=== PATIENT | male | born 1960 | race Caucasian/White ===

== ENCOUNTER 2019-09-05 12:04 | Emergency (ER) | payer BC ==
--- NOTE | 2019-09-05 14:34 | ED ---
Abdominal Pain HPI - General Chief Complaint: Abdominal Pain Stated Complaint: groin pain Time Seen by Provider: 09/05/19 14:17 Source: patient Mode of arrival: ambulatory Limitations: no limitations - History of Present Illness Initial Comments: Patient is 59-year-old male presenting to emergency Department with chief complaint of abdominal pain. Patient reports his abdominal muscles in the suprapubic region multiple times before. However, he states the most recent episode was yesterday he said having continuous pain in the region. Patient reports the pain feels like pulling of the muscles. Patient denies any increased urgency or frequency or dysuria. Patient denies any trauma to the region. Patient denies radiation of the pain, and he has other abdominal pain, back pain, chest pain or shortness of breath. Patient denies any night sweats or chills. Patient denies any nausea vomiting or diarrhea. Patient denies taking any medication to alleviate the symptoms. Patient denies a history of hernias. - Related Data Allergies Allergy/AdvReac Type Severity Reaction Status Date / Time No Known Allergies Allergy Verified 09/05/19 12:32 Review of Systems ROS Statement: Those systems with pertinent positive or pertinent negative responses have been documented in the HPI. ROS Other: All systems not noted in ROS Statement are negative. Past Medical History Past Medical History: No Reported History History of Any Multi-Drug Resistant Organisms: None Reported Past Surgical History: No Surgical Hx Reported Past Psychological History: No Psychological Hx Reported Smoking Status: Current every day smoker Past Alcohol Use History: Occasional Past Drug Use History: None Reported General Exam Limitations: no limitations General appearance: alert, in no apparent distress Head exam: Present: atraumatic, normocephalic, normal inspection Eye exam: Present: normal appearance ENT exam: Present: normal exam, mucous membranes moist Neck exam: Present: normal inspection, full ROM Respiratory exam: Present: normal lung sounds bilaterally Cardiovascular Exam: Present: regular rate, normal rhythm, normal heart sounds GI/Abdominal exam: Present: soft, tenderness (Very mild tenderness in the suprapubic region.), normal bowel sounds. Absent: distended, guarding, rebound, rigid, mass (No abdominal masses appreciated on abdominal exam) Extremities exam: Present: normal inspection, full ROM Back exam: Present: normal inspection, full ROM Neurological exam: Present: alert, oriented X3 Psychiatric exam: Present: normal affect, normal mood Skin exam: Present: warm, intact, normal color Course Vital Signs 09/05/19 09/05/19 12:31 15:22 Temperature 98.2 F 98.0 F Pulse Rate 78 70 Respiratory 18 17 Rate Blood Pressure 149/87 137/74 O2 Sat by Pulse 98 98 Oximetry Medical Decision Making - Medical Decision Making Patient is a 59-year-old female presenting to emergency Department with a chief complaint of abdominal pain. Based on the patient's description this appears to be muscle strain of the abdominal wall. Patient does have a pulling, tightening sensation of the suprapubic abdominal wall muscles. Physical examination the abdomen is negative for any masses, hernia or tenderness. Patient has no nausea vomiting or diarrhea. Patient denies urinary symptoms. UA is clean. I showed the patient several exercises to help stretch abdominal muscles. Patient advised to follow with primary care for further management. Strict return parameters were thoroughly discussed with patient was understanding and agreeab le. Case discussed physician. - Lab Data Lab Results 09/05/19 Range/Units 14:42 Urine Color Yellow Urine Appearance Clear (Clear) Urine pH 5.0 (5.0-8.0) Ur Specific Nikolai 1.010 (1.001-1.035) Urine Protein Negative (Negative) Urine Glucose (UA) Negative (Negative) Urine Ketones Trace H (Negative) Urine Blood Negative (Negative) Urine Nitrite Negative (Negative) Urine Bilirubin Negative (Negative) Urine Urobilinogen <2.0 (<2.0) mg/dL Ur Leukocyte Esterase Negative (Negative) Disposition Clinical Impression: Strain of abdominal muscle Disposition: HOME SELF-CARE Condition: Stable Instructions (If sedation given, give patient instructions): Muscle Strain (ED) Additional Instructions: Please follow with primary care. Please return to emergency department if symptoms worsen. Is patient prescribed a controlled substance at d/c from ED?: No Referrals: None,Stated [Primary Care Provider] - 1-2 days Time of Disposition: 15:10
[2019-09-05 14:57] LABS: Appearance,Urine Clear (Clear); Bilirubin,Urine Negative (Negative); Blood,Urine Negative (Negative); Color,Urine Yellow; Glucose,Urine (UA) Negative (Negative); Ketones,Urine Trace (Negative); Leukocyte Esterase,Urine Negative (Negative); Nitrite,Urine Negative (Negative); Protein,Urine Negative (Negative); Urobilinogen,Urine <2.0 mg/dL (<2.0)
[2019-09-05 15:24] VITALS: BP 137/74; PULSE 70; RESP 17; TEMP 98
== END 2019-09-05 15:24 | disposition home or self-care (01) ==
LOC: EC 12:04
DX: S39.011A Strain of muscle, fascia and tendon of abdomen, initial encounter (principal); F17.200 Nicotine dependence, unspecified, uncomplicated; X58.XXXA Exposure to other specified factors, initial encounter
CPT/HCPCS: 81003; 99284

== ENCOUNTER 2020-08-12 13:34 | Emergency (ER) | payer BC ==
[2020-08-12 13:39] VITALS: BP 172/84; PULSE 79; RESP 18; TEMP 97.3
--- NOTE | 2020-08-12 14:05 | ED ---
Lower Extremity Injury HPI - General Source: patient Mode of arrival: ambulatory Limitations: no limitations <Gita Long - Last Filed: 08/12/20 14:08> <Roque Whitt - Last Filed: 08/12/20 15:03> - General Chief Complaint: Extremity Injury, Lower Stated Complaint: L Knee Pain Time Seen by Provider: 08/12/20 13:52 - History of Present Illness Initial Comments: 60-year-old male presented for chief complaint of left posterior knee pain he states he has had left lateral left posterior knee pain on and off for 2 weeks he states as a aching pain feels deep. He states he has not noticed any calf swelling or pain he denies any leg swelling. Does interact injury trauma he denies any redness swelling of the knee joint fever chills general malaise or additional complaints. Patient states he still to range with some tenderness and weight-bear and ambulate. Patient has no additional complaints upon arrival he appears well nontoxic distress denies any history of DVT pulmonary and wasn't history of cancer recent surgeries travel injuries. (Gita Long) - Related Data Allergies Allergy/AdvReac Type Severity Reaction Status Date / Time No Known Allergies Allergy Verified 08/12/20 13:39 Review of Systems ROS Other: All systems not noted in ROS Statement are negative. <Gita Long - Last Filed: 08/12/20 14:08> ROS Other: All systems not noted in ROS Statement are negative. <Roque Whitt - Last Filed: 08/12/20 15:03> ROS Statement: Those systems with pertinent positive or pertinent negative responses have been documented in the HPI. Past Medical History Past Medical History: No Reported History History of Any Multi-Drug Resistant Organisms: None Reported Past Surgical History: No Surgical Hx Reported Past Psychological History: No Psychological Hx Reported Smoking Status: Current every day smoker Past Alcohol Use History: Occasional Past Drug Use History: None Reported <Gita Long - Last Filed: 08/12/20 14:08> General Exam Limitations: no limitations <Gita Long - Last Filed: 08/12/20 14:08> - General Exam Comments Initial Comments: General: The patient is awake and alert, in no distress Eye: Pupils are equal, round and reactive to light, extra-ocular movements are intact. No nystagmus. There is normal conjunctiva bilaterally. No signs of icterus. Cardiovascular: There is a regular rate and rhythm. No murmur, rub or gallop is appreciated. Respiratory: Lungs are clear to auscultation, respirations are non-labored, breath sounds are equal. No wheezes, stridor, rales, or rhonchi. Musculoskeletal: No swelling nor redness noted of the knees when compared bilaterally. Patient has no anterior tenderness to palpation however he does have some lateral and posterior tenderness appreciated no noted swelling. There is no tenderness or swelling noted at the calf bilaterally. They appear equal in comparison. Patient is full strength and range of motion of the knees bilaterally including the affected left knee. Sensation intact proximal distal to area of complaint +2 dorsalis pedis pulses bilaterally Neurological: A&O x 3. CN II-XII intact grossly, There are no obvious motor or sensory deficits. Coordination appears grossly intact. Speech is normal. Skin: Skin is warm and dry and no rashes or lesions are noted. Psychiatric: Cooperative, appropriate mood & affect, normal judgment. (Gita Long) Course Vital Signs 08/12/20 13:37 Temperature 97.3 F L Pulse Rate 79 Respiratory 18 Rate Blood Pressure 172/84 O2 Sat by Pulse 98 Oximetry Medical Decision Making <Gita Long - Last Filed: 08/12/20 14:08> <Roque Whitt - Last Filed: 08/12/20 15:03> - Medical Decision Making XR , US pending at time of sign out. Patient case discussed with Dr. Barkley attending--if US, XR are (-) patient I feel is stable for discharge as there is no signs of infectious cause. Patient is neurovascularly intact and ambulatory. 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 ZEESHAN Whitt is watching for peding imaging studies. (Gita Long) Patient care was signed off to me by ZEESHAN Pelayo. Ultrasound is negative for DVT. X-rays negative for any acute processes. Information was conveyed to the patient. He was advised to follow-up with multi media specialist. Strict return parameters were thoroughly discussed with patient is understanding and agreeable. Case discussed with physician. (Roque Whitt) Disposition <Gita Long Hector - Last Filed: 08/12/20 14:08> Is patient prescribed a controlled substance at d/c from ED?: No Time of Disposition: 15:03 <Roque Whitt - Last Filed: 08/12/20 15:03> Clinical Impression: Left knee pain Disposition: HOME SELF-CARE Condition: Stable Instructions (If sedation given, give patient instructions): Knee Sprain (ED) Additional Instructions: Follow with multi media specialist. Alternate between Tylenol Motrin for pain co ntrol. Apply as compress. Keep the leg elevated. Return to emergency department if symptoms worsen. Referrals: None,Stated [Primary Care Provider] - 1-2 days Ventura Mckee DO [Medical Doctor] - 1-2 days
--- NOTE | 2020-08-12 14:08 | XR ---
EXAMINATION TYPE: XR knee complete LT DATE OF EXAM: 08/12/2020 COMPARISON: NONE HISTORY: Pain TECHNIQUE: Three views are submitted. FINDINGS: Mild narrowing of the medial compartment of the knee joint. No erosive changes. Osseous structures a re intact. No acute fracture seen. IMPRESSION: 1. No acute fracture or dislocation.
--- NOTE | 2020-08-12 14:47 | US ---
EXAMINATION TYPE: US venous doppler duplex LE LT DATE OF EXAM: 08/12/2020 1:53 PM COMPARISON: NONE CLINICAL HISTORY: posterior knee pain. SIDE PERFORMED: left TECHNIQUE: The lower extremity deep venous system is examined utilizing real time linear array sonog sam with graded compression, doppler sonography and color-flow sonography. VESSELS IMAGED: External Iliac Vein (EIV) Common Femoral Vein Deep Femoral Vein Greater Saphenous Vein * Femoral Vein Popliteal Vein Small Saphenous Vein * Proximal Calf Veins (* superficial vessels) Left Leg: Negative for DVT IMPRESSION: No evidence of DVT at this time.
== END 2020-08-12 15:32 | disposition home or self-care (01) ==
LOC: EC 13:34
DX: M25.562 Pain in left knee (principal); F17.200 Nicotine dependence, unspecified, uncomplicated
CPT/HCPCS: 99284

== ENCOUNTER 2024-04-30 11:43 | Emergency (ER) | payer BC, OTHER ==
[2024-04-30 11:55] VITALS: RESP 18
[2024-04-30] MEDS: DIPH,PERTUS(ACELL)TETVAC-LF 0.5 ML VIAL IM ONE (12:57)
--- NOTE | 2024-04-30 13:34 | ED ---
Upper Extremity HPI - General Chief Complaint: Extremity Injury, Upper Stated Complaint: L Hand Injury Time Seen by Provider: 04/30/24 12:00 Source: patient, RN notes reviewed Mode of arrival: ambulatory Limitations: no limitations - History of Present Illness Initial Comments: 63-year-old male presenting with laceration on left hand 1 hour prior to arr ival. States he was attempting to cut a zip tie with a utility knife when the knife slipped and sliced his left index finger. Denies blood thinners. He is right-hand dominant. Last tetanus unknown. Denies numbness or tingling. - Related Data Previous Rx's Medication Instructions Recorded Cephalexin [Keflex] 500 mg PO Q12HR 5 Days #10 cap 04/30/24 Allergies Allergy/AdvReac Type Severity Reaction Status Date / Time No Known Allergies Allergy Verified 04/30/24 11:55 Review of Systems ROS Statement: Those systems with pertinent positive or pertinent negative responses have been documented in the HPI. ROS Other: All systems not noted in ROS Statement are negative. Past Medical History Past Medical History: No Reported History History of Any Multi-Drug Resistant Organisms: None Reported Past Surgical History: No Surgical Hx Reported Past Psychological History: No Psychological Hx Reported Smoking Status: Current every day smoker Past Alcohol Use History: Occasional Past Drug Use History: None Reported General Exam Limitations: no limitations General appearance: alert, in no apparent distress Head exam: Present: atraumatic, normocephalic, normal inspection Left Forearm Wrist exam: Present: normal inspection, full ROM. Absent: tenderness, swelling Hand Wrist exam: Present: full ROM, laceration (3 cm superficial laceration present on dorsal aspect of proximal second digit of left hand. No active bleeding. No tenderness to palpation. Full range of motion of metacarpal phalangeal joint, DIP and PIP joints). Absent: tenderness, swelling Vascular: Absent: vascular compromise (Cap refill less than 2 seconds. Sensation and radial pulses intact) Course Vital Signs 04/30/24 04/30/24 11:53 13:38 Temperature 98 F 98.1 F Pulse Rate 114 H 80 Respiratory 18 18 Rate Blood Pressure 162/89 137/87 O2 Sat by Pulse 98 100 Oximetry Procedures - Laceration Laceration #1 Consent Obtained: verbal consent Indication: laceration Site: upper extremity Size (cm): 3 Description: linear Depth: simple, single layer Pre-repair: wound explored, irrigated extensively, deep structures intact Patient Tolerated Procedure: well, no complications Additional Comments: Wound irrigated, skin adhesive and Steri-Strips applied. Full range of motion and neurovascularly intact status post procedure Medical Decision Making - Medical Decision Making Was pt. sent in by a medical professional or institution (, [facility], [facility], urgent care, hospital, or senior care...) When possible be specific @ -No Did you speak to anyone other than the patient for history (EMS, parent, family, police, friend...)? What history was obtained from this source @ -No Did you review nursing and triage notes (agree or disagree)? Why? @ -I reviewed and agree with nursing and triage notes Were old charts reviewed (outside hosp., previous admission, EMS record, old EKG, old radiological studies, urgent care reports/EKG's, senior care records)? Report findings @ -No old charts were reviewed Differential Diagnosis (chest pain, altered mental status, abdominal pain women, abdominal pain men, vaginal bleeding, weakness, fever, dyspnea, syncope, headache, dizziness, GI bleed, back pain, seizure, CVA, palpatations, mental health, musculoskeletal)? @ -Differential Musculoskeletal Laceration, avulsion, muscular strain, contusion, ligament sprain, fracture, arthritis, septic arthritis, bursitis, cellulitis, muscle spasm, nerve compression, DVT, arterial occlusion, herpes zoster, electrolyte abnormality, tumor.... This is not meant to be in all inclusive list EKG interpreted by me (3pts min.). @ -None X-rays interpreted by me (1pt min.). @ -None done CT interpreted by me (1pt min.). @ -None done U/S interpreted by me (1pt. min.). @ -None done What testing was considered but not performed or refused? (CT, X-rays, U/S, labs)? Why? @ -X-ray not performed due to no blunt trauma and no tenderness What meds were considered but not given or refused? Why? @ -None Did you discuss the management of the patient with other professionals (professionals i.e. [facility] Watters, [facility], lab, RT, psych nurse, social services designee, sign builder, teacher, training and development officer, case briefer)? Give summary @ -No Was smoking cessation discussed for >3mins.? @ -No Was critical care preformed (if so, how long)? @ -No Were there social determinants of health that impacted care today? How? (Homelessness, low income, unemployed, alcoholism, drug addiction, transportation, low edu. Level, literacy, decrease access to med. care, [facility], re hab)? @ -No Was there de-escalation of care discussed even if they declined (Discuss DNR or withdrawal of care, Hospice)? DNR status @ -No What co-morbidities impacted this encounter? (DM, HTN, Smoking, COPD, CAD, Cancer, CVA, ARF, Chemo, Hep., AIDS, mental health diagnosis, sleep apnea, morbid obesity)? @ -None Was patient admitted / discharged? Hospital course, mention meds given and route, prescriptions, significant lab abnormalities, going to OR and other pertinent info. @ -Patient was discharged. Patient was seen and evaluated for laceration of second digit of left hand. Patient is neurovascularly intact. Physical examination reveals 3 cm superficial, nonbleeding laceration on dorsal aspect of proximal second digit. Wound irrigated thoroughly, skin adhesive and Steri- Strips applied. Patient tolerated procedure well and is neurovascularly intact status post procedure. Tetanus updated. Wound care discussed. Prescribed Keflex for antibacterial prophylaxis. Strict return/alarm symptoms discussed with patient and he shows understanding and agrees with plan. Case discussed with my attending Dr. Church. Patient discharged in stable condition Undiagnosed new problem with uncertain prognosis? @ -No Drug Therapy requiring intensive monitoring for toxicity (Heparin, Nitro, Insulin, Cardizem)? @ -No Were any procedures done? @ -No Diagnosis/symptom? @ -Laceration of left second digit Acute, or Chronic, or Acute on Chronic? @ -Acute Uncomplicated (without systemic symptoms) or Complicated (systemic symptoms)? @ -Uncomplicated Side effects of treatment? @ -No Exacerbation, Progression, or Severe Exacerbation? @ -No Poses a threat to life or bodily function? How? (Chest pain, USA, AR, pneumonia, PE, COPD, DKA, ARF, appy, cholecystitis, CVA, Diverticulitis, Homicidal, Suicidal, threat to staff... and all critical care pts) @ -No Disposition Clinical Impression: Laceration of left hand Disposition: HOME SELF-CARE Condition: Stable Instructions (If sedation given, give patient instructions): Laceration (ED) Additional Instructions: Please return to the Emergency Department if symptoms worsen or any other concerns. Prescriptions: Cephalexin [Keflex] 500 mg PO Q12HR 5 Days #10 cap Is patient prescribed a controlled substance at d/c from ED?: No Referrals: None,Stated [Primary Care Provider] - 1-2 days Time of Disposition: 13:33
[2024-04-30 13:40] VITALS: BP 137/87; PULSE 80; TEMP 98.1
== END 2024-04-30 13:38 | disposition home or self-care (01) ==
LOC: EC 11:43
DX: S61.211A Laceration without foreign body of left index finger without damage to nail, initial encounter (principal); F17.200 Nicotine dependence, unspecified, uncomplicated; W26.0XXA Contact with knife, initial encounter; Z23 Encounter for immunization
CPT/HCPCS: 12013; 90471; 90715; 99283

== ENCOUNTER → 2024-10-10 | Outpatient (CLI) | payer MEDICARE ==
--- NOTE | 2024-10-10 17:00 | CTL ---
EXAMINATION TYPE: CT Low Dose Lung DATE OF EXAM: 10/10/2024 4:31 PM COMPARISON: None. CLINICAL INDICATION: Male, 64 years old with history of Z12.2 ENCNTR SCREEN FO F17.210 NICOTINE DEPEN DENCE; Lung screening for nicotine dependence of 1.25ppd x58 years. Current smoker., history of tobac co use. TECHNIQUE: Multiple axial non-contrast scans were obtained from approximately the lung apices through the upper abdomen. Coronal and sagittal reformatted images were obtained. Low dose technique was uti lized. MIP were created on a separate workstation and submitted for review. CT DLP: 76.4 mGycm, Automated exposure control for dose reduction was used. CT Contrast: Contrast used: None Oral contrast used: None FINDINGS: Lack of intravenous contrast and low dose technique limits the evaluation of the vascular and soft ti ssue structures. LUNGS: No evidence of pulmonary fibrosis. No evidence of focal consolidation, pneumothorax or pleural effusion. Centrilobular emphysema changes. Nodules: RUL: None. RML: None. RLL: Intrafissural lymph node series 7 image 39 CIERA: None. LLL: r 7 x 5 mm pulmonary nodule near the diaphragm, intrafissural lymph node series 7 image 34e AIRWAY: Patent and unremarkable. HEART: Size within normal limits.Atherosclerosis of the arterial vasculature. MEDIASTINUM: No gross evidence of adenopathy. VASCULATURE: No aortic aneurysm. MUSCULOSKELETAL: No acute osseous abnormalities SOFT TISSUES/LYMPH NODES: Unremarkable. LOWER NECK: No significant findings. UPPER ABDOMEN: No significant findings. IMPRESSION: 1. 7 x 5 mm nodule in the left lung base on baseline screening. 2. Mild emphysema. CT LUNG RAD AND CT CHEST RECOMMENDATION: Lung-Rad 3 Probably Benign: 6 month follow-up LDCT. S Modifier (other clinically significant findings): None Recommend smoking cessation (if current smoker), or continuation of smoking cessation (if prior smoke r). Annual screening for lung cancer with low-dose computed tomography is recommended in adults ages 55 to 77 years who have a 30 pack-year smoking history and currently smoke or have quit within the pa st 15 years. Screening should be discontinued once a person has not smoked for 15 years or develops a health problem that substantially limits life expectancy or the ability or willingness to have curat karma lung surgery. [facility], , 10/10/2024 4:57 PM
== END | disposition home or self-care (01) ==
LOC: RADCTMAIN 16:03
PROVIDERS: ATTEND Family Medicine
DX: Z12.2 Encounter for screening for malignant neoplasm of respiratory organs (principal); J43.9 Emphysema, unspecified; F17.210 Nicotine dependence, cigarettes, uncomplicated; R91.1 Solitary pulmonary nodule
CPT/HCPCS: 71271

== ENCOUNTER → 2025-05-11 | Outpatient (CLI) | payer MEDICARE ==
--- NOTE | 2025-05-11 21:18 | CT ---
EXAMINATION TYPE: CT chest wo con CT DLP: 227.2 mGycm, Automated exposure control for dose reduction was used. DATE OF EXAM: 05/11/2025 4:21 PM COMPARISON: CT low dose lung 10/10/2024 CLINICAL INDICATION:Male, 64 years old with history of R91.1 SOLITARY PULMONARY NODULE; PHH, SOLITARY PULMONARY NODULE TECHNIQUE: Multiple axial images were obtained through the chest without IV contrast. Lack of IV or o ral contrast limits evaluation of solid and hollow organ viscera. . Coronal and sagittal reformats re viewed. FINDINGS: LUNGS/ PLEURA: Mild biapical pleural-parenchymal scarring. Mild centrilobular and paraseptal emphysem atous changes. No pleural effusion or pneumothorax. Few tiny intrafissural lymph nodes redemonstrate d. Stable left lower lobe 6.6 mm solid pulmonary nodule (series 4, image 58). No new or enlarging pul monary nodules. Linear scarring and/or atelectasis within the mid aspect of the right middle lobe. AIRWAY: Patent and unremarkable.. HEART: Size within normal limits. . No pericardial effusion. Moderate coronary artery calcifications present. MEDIASTINUM: No gross evidence of adenopathy. VASCULATURE: No aortic aneurysm. Mild atherosclerotic calcification of the aorta and its branches. MUSCULOSKELETAL: No acute osseous abnormalities SOFT TISSUES/LYMPH NODES: Unremarkable. LOWER NECK: No significant findings. UPPER ABDOMEN: No significant findings. IMPRESSION: 1. Stable left lower lobe solid 6.6 mm pulmonary nodule. Category 2. According to lung rads continue annual screening with low-dose CT. 2. Mild emphysematous changes are demonstrated. [facility], , 05/11/2025 9:16 PM
== END | disposition home or self-care (01) ==
LOC: RADCTMAIN 15:11
PROVIDERS: ATTEND Family Medicine
DX: J43.2 Centrilobular emphysema (principal); R91.1 Solitary pulmonary nodule
CPT/HCPCS: 71250